=== PATIENT | female | born 1990 | race Caucasian/White ===

== ENCOUNTER 2020-09-05 10:18 | Outpatient (CLI) | payer OTHER, SELFPAY | END 2020-09-05 10:19 | disposition home or self-care (01) | PROVIDERS: PCP Family Medicine | DX: Z23 Encounter for immunization (principal) | CPT/HCPCS: 0001A; 91300 ==

== ENCOUNTER 2020-09-26 10:15 | Outpatient (CLI) | payer OTHER, SELFPAY | END 2020-09-26 10:16 | disposition home or self-care (01) | LOC: ANHCOVIDVC 10:15 | PROVIDERS: PCP Family Medicine | DX: Z23 Encounter for immunization (principal) | CPT/HCPCS: 0002A; 91300 ==

== ENCOUNTER 2022-10-03 23:45 | Observation (INO) | payer OTHER, BC, SELFPAY ==
[2022-10-04 00:16] VITALS: BP 123/71; PULSE 78
[2022-10-04 00:20] VITALS: BMI 38.1
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
== END 2022-10-04 01:40 | disposition home or self-care (01) ==
PROVIDERS: Admitting Provider Obstetrics & Gynecology; PCP Family Medicine; Visit Provider Obstetrics & Gynecology
DX: Z04.1 Encounter for examination and observation following transport accident (principal); V89.2XXA Person injured in unspecified motor-vehicle accident, traffic, initial encounter; Z3A.23 23 weeks gestation of pregnancy
CPT/HCPCS: 36415; 85460; 86850; 86900; 86901; G0378; G0379

== ENCOUNTER 2022-10-27 16:51 | Observation (INO) | payer BC, SELFPAY ==
[2022-10-27 17:12] VITALS: BP 126/76; PULSE 89
[2022-10-27 17:30] VITALS: BP 117/72; PULSE 96
[2022-10-27 17:46] LABS: Appearance Urine Cloudy (Clear); Bilirubin Urine 1+ (Negative); Blood Urine Negative (Negative); Color Urine Orange (Yellow); Glucose Urine UA Trace mg/dL (Negative); Ketones Urine 1+ mg/dL (Negative); Leukocyte Esterase Ur Negative LEU/UL (NEGATIVE); Nitrate Urine Positive (Negative); Protein Urine 2+ mg/dL (Negative); Specific Grav Ur >= 1.030 (1.001-1.035)
[2022-10-27 17:58] LABS: Bacteria Urine 2+ /hpf; Calcium Oxalate Crystals Urine Present /hpf; Non Pathogenic Casts 0-2; RBC Urine 0-2 /hpf (0-2); Squamous Epithelial Cell Urine Many /hpf (Few)
[2022-10-27 18:00] VITALS: BP 124/54; PULSE 98
[2022-10-27 18:00] LABS: Add Urine Microscopic? YES
[2022-10-27 18:09] VITALS: BMI 39.2
[2022-10-27] MEDS: ONDANSETRON INJ 4 MG/2 ML VIAL IV PUSH (18:10)
[2022-10-27] MEDS: FAMOTIDINE 20 MG/2 ML VIAL IV PUSH (18:11)
[2022-10-27 18:28] LABS: Basophils Percent Auto 0.3 % (0.2-1.2); Eosinophils Absolute Auto 0.1 K/mm3 (0-0.3); Eosinophils Percent Auto 0.9 % (0-4.4); Hematocrit 33.7 % (37.0-47.0); Hemoglobin 11.6 g/dL (12.0-15.0); Immature Granulocyte Absolute 0.05 K/mm3 (0.00-0.031); Immature Granulocyte Percent A 0.5 % (0-0.5); Lymphocytes Absolute Auto 2.27 K/mm3 (0.9-3.2); Lymphocytes Percent Auto 21.5 % (18.3-44.2); Mean Corpuscular HGB Conc 34.4 g/dl (32-36); Mean Corpuscular Hemoglobin 32.2 pg (26-34); Mean Corpuscular Volume 93.6 fl (80-100); Mean Platelet Volume 8.5 fl (7.4-10.4); Monocytes Absolute Auto 0.9 K/mm3 (0.1-0.6); Monocytes Percent Auto 8.8 % (2.6-8.5); Neutrophils Absolute Auto 7.2 K/mm3 (1.3-6.7); Platelet Count Result 264 k/mm3 (150-375); Red Cell Distribution Width 13.5 % (11.5-14.5); White Blood Count 10.5 K/mm3 (4.5-10.0)
[2022-10-27 18:31] VITALS: BP 117/60; PULSE 87
[2022-10-27 18:51] LABS: Alanine Aminotransferase 48 U/L (6-35); Albumin Level 3.4 g/dL (3.5-5.1); Alkaline Phosphatase 68 U/L (38-126); Anion Gap 9 mmol/L (8-16); Aspartate Amino Transferase 53 U/L (14-36); Bilirubin,Total 0.5 mg/dL (0.2-1.3); Blood Urea Nitrogen 6 mg/dL (7-17); Calcium 8.3 mg/dL (8.4-10.2); Carbon Dioxide 21 mmol/L (22-30); Chloride 105 mmol/L (98-107); Estimated CRCL calculation 138 ml/min; Estimated Glomerular Filt Rate > 60; Glucose 93 mg/dL (65-110); Potassium 3.5 mmol/L (3.4-5.0); Sodium 135 mmol/L (137-145)
[2022-10-27 19:00] VITALS: BP 132/82; PULSE 92
--- NOTE | 2022-10-27 19:00 | PC.NURSE ---
Murray Molina at nurses station. Orders received for macrobid 100 mg BID x 7 days, patient to have repeat CBC and CMP in office on Tuesday.
--- NOTE | 2022-10-27 19:00 | PC.NURSE ---
Murray Molina at nurses station. Lab results reviewed. Orders for LR 1 Liter bolus. CNM notified patient is requesting swabs for COVID, FLU, STREP, and a work note. CNM agrees.
[2022-10-27] MEDS: DEXTROSE 5%/LACTATED RINGERS 1,000 ML 999 ML IV CONT (19:09)
[2022-10-27 19:45] LABS: Influenza A QL RT-PCR Negative (Negative); Influenza B QL RT-PCR Negative (Negative); SARS-CoV-2 RNA PCR Negative (Negative)
--- NOTE | 2022-10-28 17:46 | P.PNOB_ITS ---
OB - Triage/Final Diagnosis Visit Information Date of evaluation: 10/27/22 Reason for evaluation: other (nausea) Comments/Additional reasons for admission: I have assessed the risk for this patient, Aaliyah Conrad, and determined that she would benefit from observation care. Evaluation Laboratory results: Laboratory Tests 10/27/22 10/27/22 10/27/22 17:30 18:21 18:59 WBC 10.5 H RBC 3.60 L Hgb 11.6 L Hct 33.7 L MCV 93.6 MCH 32.2 MCHC 34.4 RDW 13.5 Plt Count 264 MPV 8.5 Immature Gran % (Auto) 0.5 Neut % (Auto) 68.0 Lymph % (Auto) 21.5 [place] % (Auto) 8.8 H Eos % (Auto) 0.9 Baso % (Auto) 0.3 Lymph # (Auto) 2.27 [place] # (Auto) 0.9 H Eos # (Auto) 0.1 Baso # (Auto) 0.0 Abs Immat Gran (auto) 0.05 H Absolute Neuts (auto) 7.2 H Absolute Nucleated RBC 0.0 Nucleated RBC % 0.0 Sodium 135 L Potassium 3.5 Chloride 105 Carbon Dioxide 21 L Anion Gap 9 BUN 6 L Creatinine 0.50 L Estim Creat Clear Calc 138 Estimated GFR > 60 Glucose 93 Calcium 8.3 L Total Bilirubin 0.5 AST 53 H ALT 48 H Alkaline Phosphatase 68 Total Protein 6.0 L Albumin 3.4 L Urine Color [place] H Urine Appearance Cloudy H Urine pH 5.0 Ur Specific [place] >= 1.030 Urine Protein 2+ H Urine Glucose (UA) Trace H Urine Ketones 1+ H Ur Blood (Man) Negative Urine Nitrate Positive Urine Bilirubin 1+ H Urine Urobilinogen 2.0 H Ur Leukocyte Esterase Negative Urine RBC 0-2 Urine WBC 11-20 H Ur Squamous Epith Cells Many H Calcium Oxalate Crystal Present Urine Bacteria 2+ H Urine Casts 0-2 Influenza A (RT-PCR) Negative Influenza B (RT-PCR) Negative SARS-CoV-2 RNA (RT-PCR) Negative Vital signs: Vital Signs - 24 hr 10/27/22 18:00 10/27/22 18:31 10/27/22 19:00 Pulse Rate 98 87 92 Blood Pressure 124/54 L 117/60 132/82
== END 2022-10-27 20:37 | disposition home or self-care (01) ==
PROVIDERS: Advanced Practice Midwife; Admitting Provider Obstetrics & Gynecology; PCP Family Medicine; Visit Provider Obstetrics & Gynecology
DX: O21.9 Vomiting of pregnancy, unspecified (principal); Z3A.27 27 weeks gestation of pregnancy
CPT/HCPCS: 36415; 80053; 81001; 85025; 87086; 87636; 96374; 96375; G0378; G0379; J2405; J7121

== ENCOUNTER 2022-10-29 14:10 | Outpatient (CLI) | payer BC, SELFPAY ==
[2022-10-29 15:08] LABS: Hematocrit 34.8 % (37.0-47.0); Hemoglobin 11.9 g/dL (12.0-15.0); Mean Corpuscular HGB Conc 34.2 g/dl (32-36); Mean Corpuscular Hemoglobin 32.6 pg (26-34); Mean Corpuscular Volume 95.3 fl (80-100); Mean Platelet Volume 8.7 fl (7.4-10.4); Platelet Count Result 273 k/mm3 (150-375); Red Blood Count 3.65 M/mm3 (4.2-5.4); Red Cell Distribution Width 13.6 % (11.5-14.5); White Blood Count 11.2 K/mm3 (4.5-10.0)
[2022-10-29 15:21] LABS: Alanine Aminotransferase 56 U/L (6-35); Albumin Level 3.3 g/dL (3.5-5.1); Alkaline Phosphatase 61 U/L (38-126); Anion Gap 8 mmol/L (8-16); Aspartate Amino Transferase 52 U/L (14-36); Bilirubin,Total 0.3 mg/dL (0.2-1.3); Blood Urea Nitrogen 6 mg/dL (7-17); Calcium 8.1 mg/dL (8.4-10.2); Carbon Dioxide 23 mmol/L (22-30); Chloride 106 mmol/L (98-107); Estimated Glomerular Filt Rate > 60; Glucose 104 mg/dL (65-110); Potassium 3.6 mmol/L (3.4-5.0); Sodium 137 mmol/L (137-145)
== END 2022-10-29 14:11 | disposition home or self-care (01) ==
LOC: ANHOBOP 14:27
PROVIDERS: PCP Family Medicine; Visit Provider Advanced Practice Midwife
DX: O26.899 Other specified pregnancy related conditions, unspecified trimester (principal); E86.0 Dehydration; Z3A.00 Weeks of gestation of pregnancy not specified
CPT/HCPCS: 36415; 80053; 85027

== ENCOUNTER 2022-12-05 18:12 | Emergency (ER) | payer BC, SELFPAY ==
--- NOTE | ~2022-12-05 | XR_ITS ---
Portable chest x-ray Comparison: None Clinical History: Dyspnea Findings: Lungs are clear, without focal consolidation or pleural effusion. Cardiomediastinal silho uette is unremarkable. Bones and soft tissues are unremarkable. Impression: Normal chest. Reviewed, dictated and finalized at location M. Impression: Normal chest.
[2022-12-05 18:37] VITALS: BP 133/86; PULSE 79; RESP 20; TEMP 36.5; O2SAT 100
--- NOTE | 2022-12-05 18:46 | ECG_ITS ---
Measurements Intervals [place] Rate: 76 P: 54 CO: 130 QRS: 55 QRSD: 81 T: 35 QT: 373 QTc: 421 Interpretive Statements SINUS RHYTHM NORMAL ECG NO PREVIOUS ECG AVAILABLE FOR COMPARISON Electronically Signed On 12-06-2022 15:46:07 CDT by Alpesh Alfonso M.D.
--- NOTE | 2022-12-05 18:46 | PC.NURSE ---
ob charge contacted. states will come monitor pt when pt placed in room.
[2022-12-05 18:57] LABS: Basophils Percent Auto 0.3 % (0.2-1.2); Eosinophils Absolute Auto 0.1 K/mm3 (0-0.3); Eosinophils Percent Auto 0.8 % (0-4.4); Hematocrit 34.9 % (37.0-47.0); Immature Granulocyte Absolute 0.05 K/mm3 (0.00-0.031); Immature Granulocyte Percent A 0.4 % (0-0.5); Lymphocytes Absolute Auto 2.27 K/mm3 (0.9-3.2); Lymphocytes Percent Auto 19.6 % (18.3-44.2); Mean Corpuscular HGB Conc 34.4 g/dl (32-36); Mean Corpuscular Hemoglobin 32.1 pg (26-34); Mean Corpuscular Volume 93.3 fl (80-100); Mean Platelet Volume 8.8 fl (7.4-10.4); Monocytes Absolute Auto 0.9 K/mm3 (0.1-0.6); Monocytes Percent Auto 7.9 % (2.6-8.5); Neutrophils Absolute Auto 8.2 K/mm3 (1.3-6.7); Platelet Count Result 277 k/mm3 (150-375); Red Blood Count 3.74 M/mm3 (4.2-5.4); Red Cell Distribution Width 13.5 % (11.5-14.5); White Blood Count 11.6 K/mm3 (4.5-10.0)
[2022-12-05 19:07] LABS: Alanine Aminotransferase 19 U/L (6-35); Albumin Level 3.3 g/dL (3.5-5.1); Alkaline Phosphatase 78 U/L (38-126); Anion Gap 7 mmol/L (8-16); Aspartate Amino Transferase 19 U/L (14-36); Bilirubin,Total 0.2 mg/dL (0.2-1.3); Blood Urea Nitrogen 9 mg/dL (7-17); Calcium 8.9 mg/dL (8.4-10.2); Carbon Dioxide 20 mmol/L (22-30); Chloride 109 mmol/L (98-107); Estimated CRCL calculation 123 ml/min; Estimated Glomerular Filt Rate > 60; Glucose 97 mg/dL (65-110); Potassium 3.8 mmol/L (3.4-5.0); Sodium 136 mmol/L (137-145)
[2022-12-05 19:37] LABS: Appearance Urine Turbid (Clear); Bacteria Urine 4+ /hpf; Bilirubin Urine Negative (Negative); Blood Urine Negative (Negative); Color Urine Yellow (Yellow); Glucose Urine UA Negative (Negative); Ketones Urine Trace mg/dL (Negative); Leukocyte Esterase Ur Trace LEU/UL (Negative); Need Manual Microscopic Reviewed; Nitrate Urine Negative (Negative); Protein Urine 1+ mg/dL (Negative); Specific Grav Ur 1.025 (1.001-1.035); Squamous Epithelial Cell Urine Many /hpf (Few); Urobilinogen Urine 0.2 mg/dL (<2.0); WBC Urine 21-50 /hpf
[2022-12-05 19:38] LABS: Add Urine Microscopic? YES
--- NOTE | 2022-12-05 19:51 | ED.GENADULT ---
HPI - General Adult General Chief complaint: Shortness of Breath/Dyspnea Stated complaint: shortness of breath Time Seen by Provider: 12/05/22 19:36 Source: patient Mode of arrival: ambulatory Limitations: no limitations History of Present Illness HPI narrative: This is a 32-year-old female who is approximately 8 months with due date of January 25, 2023 who presents to the ED with chief complaint of shortness of breath and leg swelling over the past couple of days. Patient states that she has dyspnea on exertion. Additional complaints of left upper quadrant cramping. Denies any lower abdominal pain, bleeding or discharge. Denies vomiting, fevers, chills, nausea, chest pain Reports history of hypertension and she is on hypertensive medications. A0. States her PICK UP MAN is Dr. Kincaid. Related Data Home Medications Medication Instructions Recorded Confirmed levothyroxine 50 mcg tablet mcg 10/27/22 Allergies Allergy/AdvReac Type Severity Reaction Status Date / Time amoxicillin Allergy Unknown RASH Verified 10/04/22 00:46 Penicillins Allergy Unknown RASH Verified 10/04/22 00:46 Review of Systems Review of Systems: CONSTITUTIONAL: Denies fever, chills, or sweats. EYES: Denies visual changes, redness, or discharge. ENT: Denies rhinorrhea, congestion, sore throat, or otalgia. CARDIOVASCULAR: Denies chest pain, palpitations, or edema. RESPIRATORY: See HPI GASTROINTESTINAL: See HPI GENITOURINARY: Denies dysuria or hematuria. SKIN: Denies rash or itching. MUSCULOSKELETAL: Denies back pain, joint pain, or myalgia. NEUROLOGIC: Denies headache, numbness, dizziness, or weakness. PSYCHIATRIC: Denies anxiety or depression. [facility] Past Medical History Medical History BMI 33.0-33.9,adult BMI 34.0-34.9,adult BMI 35.0-35.9,adult BMI 37.0-37.9, adult BMI over 35 Tobacco abuse Family History Family History Grandparent Breast cancer Grandparent Diabetes mellitus Father No problems noted. Mother Hypertension Sibling No problems noted. 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 HEAD: Normocephalic, atraumatic. EYES: PERRLA and EOMI. ENT: Nares clear, no rhinorrhea or epistaxis. Mucous membranes moist. Oropharynx without tonsillar hypertrophy exudate or other lesions. NECK: Supple. No adenopathy or masses. CHEST: No respiratory distress. Clear to auscultation. No wheezes rales or rhonchi. Sats 100%. Speaking in full sentences HEART: Regular rate and rhythm. No murmur heard. Normal peripheral pulses. ABDOMEN: Gravid abdomen. Soft, nontender, nondistended, normal active bowel sounds. No guarding or MSK: Normal range of motion. No edema. SKIN: Warm, dry, no rash. NEURO: Alert and oriented x3. No focal deficits. PSYCH: Normal mood and affect. Course Course Emergency Course: I discussed the patient with Dr. Kincaid who is her PICK UP MAN. Explained that I have very low suspicion for any blood clot. Given her normal vitals and normal exam, feel that she would be stable for discharge and close follow-up with OB. Dr. Kincaid agrees with this plan. Vital Signs Vital signs: Vital Signs Temperature 97.7 F 12/05/22 18:37 Pulse Rate 79 12/05/22 18:37 Respiratory Rate 20 12/05/22 18:37 Blood Pressure 133/86 12/05/22 18:37 Pulse Oximetry 100 12/05/22 18:3
[2022-12-05 20:41] VITALS: BP 120/90; PULSE 104; RESP 19; O2SAT 99
--- NOTE | 2022-12-05 20:59 | PC.NURSE ---
Report given to ER nurse on reactive NST with uterine irritability.
[2022-12-05 21:01] VITALS: O2SAT 100
--- NOTE | 2022-12-05 22:46 | PC.NURSE ---
This Rn went to room, pt not in room, bathroom, or hallways. Pt was seen exiting the ED by intake nurse.
== END 2022-12-05 22:47 | disposition left against medical advice (07) ==
PROVIDERS: Emergency Medicine; Emergency Provider Physician Assistant; PCP Family Medicine
DX: R06.02 Shortness of breath (principal); O12.03 Gestational edema, third trimester; Z3A.00 Weeks of gestation of pregnancy not specified; O14.93 Unspecified pre-eclampsia, third trimester
CPT/HCPCS: 36415; 71045; 80053; 81001; 85025; 87086; 87088; 93005; 99284

== ENCOUNTER 2023-01-13 14:38 | Observation (INO) | payer BC, SELFPAY ==
--- NOTE | 2023-01-13 14:38 | OBADM ---
This patient, Aaliyah Conrad, admitted to the OB room Labor/Delivery/Recovery 103 for observation. Patient/family oriented to hospital policies and general routines including ID bracelet, bed and alarms, visiting hours, pain management, procedures, bathroom and other care routines, personal items, smoking policy, room service/diet, and visiting hours. Patient/Family are encouraged to report perceived risks to care and to ask questions if they do not understand what they are told or what they should do.
--- NOTE | 2023-02-06 18:39 | PM.OBTRLD ---
OB - Triage/Final Diagnosis Visit Information Comments/Additional reasons for admission: I have assessed the risk for this patient, Aaliyah Conrad, and determined that she would benefit from observation care. Final Diagnosis (1) False labor: Code(s): O47.9 - False labor, unspecified Status: Acute
== END 2023-01-13 17:00 | disposition home or self-care (01) ==
PROVIDERS: Admitting Provider Obstetrics & Gynecology; PCP Family Medicine; Visit Provider Obstetrics & Gynecology
DX: O47.1 False labor at or after 37 completed weeks of gestation (principal); Z3A.38 38 weeks gestation of pregnancy
CPT/HCPCS: G0378; G0379

== ENCOUNTER 2023-01-16 14:08 | Observation (INO) | payer BC, SELFPAY ==
[2023-01-16 14:36] VITALS: BP 136/83; PULSE 108
[2023-01-16 15:01] VITALS: BP 138/84; PULSE 110
[2023-01-16 15:31] VITALS: BP 139/80; PULSE 92
[2023-01-16 15:59] VITALS: BMI 42.6
--- NOTE | 2023-01-16 15:59 | OBADM ---
This patient, Aaliyah Conrad, admitted to the OB room OB Post 115 for observation. Patient/family oriented to hospital policies and general routines including ID bracelet, bed and alarms, visiting hours, pain management, procedures, bathroom and other care routines, personal items, smoking policy, room service/diet, and visiting hours. Patient/Family are encouraged to report perceived risks to care and to ask questions if they do not understand what they are told or what they should do.
[2023-01-16 16:01] VITALS: BP 126/64; PULSE 89
[2023-01-16 16:31] VITALS: BP 148/92; PULSE 96
--- NOTE | 2023-02-07 09:27 | PM.OBTRLD ---
OB - Triage/Final Diagnosis Visit Information Comments/Additional reasons for admission: I have assessed the risk for this patient, Aaliyah Conrad, and determined that she would benefit from observation care. Final Diagnosis (1) Fall: Code(s): W19.XXXA - Unspecified fall, initial encounter Status: Acute
== END 2023-01-16 17:40 | disposition home or self-care (01) ==
PROVIDERS: Admitting Provider Obstetrics & Gynecology; PCP Family Medicine; Visit Provider Obstetrics & Gynecology
DX: Z04.3 Encounter for examination and observation following other accident (principal)
CPT/HCPCS: G0378; G0379

== ENCOUNTER 2023-01-18 11:04 | Outpatient (CLI) | payer BC, SELFPAY ==
[2023-01-18 11:25] VITALS: BP 136/84; PULSE 100
[2023-01-18 11:31] VITALS: BP 111/98; PULSE 90
[2023-01-18 11:46] VITALS: BP 128/81; PULSE 85
[2023-01-18 11:54] LABS: Basophils Percent Auto 0.3 % (0.2-1.2); Eosinophils Percent Auto 0.3 % (0-4.4); Hematocrit 35.6 % (37.0-47.0); Immature Granulocyte Absolute 0.03 K/mm3 (0.00-0.031); Immature Granulocyte Percent A 0.3 % (0-0.5); Lymphocytes Absolute Auto 1.81 K/mm3 (0.9-3.2); Lymphocytes Percent Auto 20.5 % (18.3-44.2); Mean Corpuscular HGB Conc 33.7 g/dl (32-36); Mean Corpuscular Volume 94.9 fl (80-100); Mean Platelet Volume 9.4 fl (7.4-10.4); Monocytes Absolute Auto 0.6 K/mm3 (0.1-0.6); Monocytes Percent Auto 6.2 % (2.6-8.5); Neutrophils Absolute Auto 6.4 K/mm3 (1.3-6.7); Neutrophils Percent Auto 72.4 % (45.5-73.1); Platelet Count Result 216 k/mm3 (150-375); Red Blood Count 3.75 M/mm3 (4.2-5.4); Red Cell Distribution Width 13.7 % (11.5-14.5); White Blood Count 8.8 K/mm3 (4.5-10.0)
[2023-01-18 12:01] VITALS: BP 137/75; PULSE 95
[2023-01-18 12:01] LABS: Appearance Urine Cloudy (Clear); Bacteria Urine 1+ /hpf; Bilirubin Urine Negative (Negative); Blood Urine Negative (Negative); Color Urine Yellow (Yellow); Glucose Urine UA Negative (Negative); Ketones Urine Trace mg/dL (Negative); Leukocyte Esterase Ur Negative LEU/UL (NEGATIVE); Need Manual Microscopic Reviewed; Nitrate Urine Negative (Negative); Protein Urine 1+ mg/dL (Negative); Specific Grav Ur 1.028 (1.001-1.035); Squamous Epithelial Cell Urine Moderate /hpf (Few)
[2023-01-18 12:03] LABS: Add Urine Microscopic? YES
[2023-01-18 12:04] LABS: Alanine Aminotransferase 22 U/L (6-35); Albumin Level 3.3 g/dL (3.5-5.1); Alkaline Phosphatase 111 U/L (38-126); Anion Gap 11 mmol/L (8-16); Aspartate Amino Transferase 23 U/L (14-36); Bilirubin,Total 0.2 mg/dL (0.2-1.3); Blood Urea Nitrogen 10 mg/dL (7-17); Calcium 8.8 mg/dL (8.4-10.2); Carbon Dioxide 16 mmol/L (22-30); Chloride 108 mmol/L (98-107); Estimated Glomerular Filt Rate > 60; Glucose 147 mg/dL (65-110); Potassium 3.6 mmol/L (3.4-5.0); Sodium 135 mmol/L (137-145); Uric Acid 5.3 mg/dL (2.5-7.5)
[2023-01-18 12:05] LABS: Creatinine Urine 195.6 mg/dL; Total Protein Urine Random 19 mg/dL
[2023-01-18 12:21] VITALS: BP 128/81; PULSE 85
--- NOTE | 2023-01-18 12:23 | PC.NURSE ---
1213: RN called Dr. Raza to report maternal and status. RN reported all Blood pressures taken, lab results, urine results, and FHT. Orders to discharge patient home with instructions on when to return to the hospital.
== END 2023-01-18 11:20 | disposition home or self-care (01) ==
LOC: ANHOBOP 11:11 → ANHOBPP 11:13
PROVIDERS: PCP Family Medicine; Visit Provider Obstetrics & Gynecology
DX: O13.9 Gestational [pregnancy-induced] hypertension without significant proteinuria, unspecified trimester (principal); Z3A.00 Weeks of gestation of pregnancy not specified
CPT/HCPCS: 36415; 59025; 80053; 81001; 82570; 84156; 84550; 85025; 87086; 99199

== ENCOUNTER 2023-01-23 12:13 | Inpatient (IN) | payer BC, SELFPAY ==
[2023-01-23] VITALS (74 sets, daily range): BP systolic 97–158; BP diastolic 66–111; PULSE 74–118; RESP 16; TEMP 36.3–36.5; O2SAT 96–100; BMI 41.8
[2023-01-23] MEDS: LACTATED RINGERS 1,000 ML 125 ML IV CONT ×2 (12:44→13:46)
[2023-01-23 13:02] LABS: Basophils Percent Auto 0.3 % (0.2-1.2); Eosinophils Percent Auto 0.1 % (0-4.4); Hematocrit 38.7 % (37.0-47.0); Hemoglobin 13.4 g/dL (12.0-15.0); Immature Granulocyte Absolute 0.05 K/mm3 (0.00-0.031); Immature Granulocyte Percent A 0.4 % (0-0.5); Lymphocytes Absolute Auto 1.91 K/mm3 (0.9-3.2); Mean Corpuscular HGB Conc 34.6 g/dl (32-36); Mean Corpuscular Hemoglobin 31.8 pg (26-34); Mean Corpuscular Volume 91.9 fl (80-100); Mean Platelet Volume 9.7 fl (7.4-10.4); Monocytes Absolute Auto 0.7 K/mm3 (0.1-0.6); Monocytes Percent Auto 4.8 % (2.6-8.5); Neutrophils Percent Auto 80.4 % (45.5-73.1); Platelet Count Result 261 k/mm3 (150-375); Red Blood Count 4.21 M/mm3 (4.2-5.4); Red Cell Distribution Width 13.6 % (11.5-14.5); White Blood Count 13.7 K/mm3 (4.5-10.0)
[2023-01-23] MEDS: fentaNYL CITRATE INJ (*CRX) 100 MCG/2 ML VIAL IV PUSH (13:11)
--- NOTE | 2023-01-23 13:48 | WPDANESEPP ---
Anes - Eval Pre Procedure Procedure: Labor epidural Date/Time: 01/23/23 13:48 Surgeon: Sanjiv Preop Diagnosis: Pain during labor Pre Op Diagnosis: contractions Patient Data Age: 32 Gender: F Height: Weight: Last Vital Signs Pulse 118 H 01/23/23 13:45 BP 144/85 H 01/23/23 13:45 Pulse Ox 98 01/23/23 13:47 Allergies Allergy/AdvReac Type Severity Reaction Status Date / Time amoxicillin Allergy Unknown RASH Verified 12/29/22 13:29 Penicillins Allergy Unknown RASH Verified 12/29/22 13:29 Home Medications Medication Instructions Recorded Confirmed Type sertraline 100 mg tablet (Zoloft) 100 mg PO DAILY #90 tabs 09/11/22 Rx buspirone 7.5 mg tablet 7.5 mg PO DAILY 12/29/22 12/29/22 History levothyroxine 75 mcg tablet mcg 12/29/22 History prenat.vits,iraj,[id number] 1 tablet 12/29/22 History Laboratory Tests 01/23/23 12:54 WBC 13.7 H K/mm3 (4.5-10.0) RBC 4.21 M/mm3 (4.2-5.4) Hgb 13.4 g/dL (12.0-15.0) Hct 38.7 % (37.0-47.0) MCV 91.9 fl (80-100) MCH 31.8 pg (26-34) MCHC 34.6 g/dl (32-36) RDW 13.6 % (11.5-14.5) Plt Count 261 k/mm3 (150-375) MPV 9.7 fl (7.4-10.4) Immature Gran % (Auto) 0.4 % (0-0.5) Neut % (Auto) 80.4 H % (45.5-73.1) Lymph % (Auto) 14.0 L % (18.3-44.2) [place] % (Auto) 4.8 % (2.6-8.5) Eos % (Auto) 0.1 % (0-4.4) Baso % (Auto) 0.3 % (0.2-1.2) Lymph # (Auto) 1.91 K/mm3 (0.9-3.2) [place] # (Auto) 0.7 H K/mm3 (0.1-0.6) Eos # (Auto) 0.0 K/mm3 (0-0.3) Baso # (Auto) 0.0 K/mm3 (0.0-0.1) Abs Immat Gran (auto) 0.05 H K/mm3 (0.00-0.031) Absolute Neuts (auto) 11.0 H K/mm3 (1.3-6.7) Absolute Nucleated RBC 0.0 K/mm3 (0.0-0.012) Nucleated RBC % 0.0 % (0.0-0.2) RPR Pending Patient hx anesthesia problems: none Family hx anesthesia problems: none Results Review: All pre-operative results and documents have been reviewed as part of the pre-operative evaluation. [facility] Past Medical History Medical History BMI 33.0-33.9,adult BMI 34.0-34.9,adult BMI 35.0-35.9,adult BMI 37.0-37.9, adult BMI over 35 Tobacco abuse Family History Family History Grandparent Breast cancer Grandparent Diabetes mellitus Father No problems noted. Mother Hypertension Sibling No problems noted. 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
--- NOTE | 2023-01-23 14:44 | WPDOBADMIT ---
Obstetrics - Admit Note Admission Note: record reviewed. No pertinent additions to the history and/or any subsequent changes in the physical findings that are not consistent with the expected course of the were found.pt arrived in labor SVE 7/-2 AROM meconium fluid, anticipate vaginal delivery Additions to the history and/or subsequent changes in the physical findings follow. None.
--- NOTE | 2023-01-23 15:06 | LDADM ---
This patient, Aaliyah Conrad, was admitted to Labor/Delivery/Recovery 108 on 01/23/23 at 12:13. Plans for labor, pain management and were discussed with patient. Patient/family oriented to hospital policies and general routines including ID bracelet, bed and alarms, visiting hours, pain management, procedures, bathroom and other care routines, personal items, smoking policy, room service/diet and guest tray routines, security routines, and visiting hours. Patient/Family are encouraged to report perceived risks to care and to ask questions if they do not understand what they are told or what they should do. See OBIX for further documentation.
[2023-01-23] MEDS: OXYTOCIN 30 UNITS/NS 500 ML 30 UNITS/500 ML BAG 999 UNITS IV CONT (16:19)
--- NOTE | 2023-01-23 16:29 | PM.OBPRVD ---
OB - Delivery Note Procedure Delivery date: 01/23/23 Procedure: Intrapartal Events: Other (meconium) Delivery augmentation: Rupture of Membranes Delivery monitor: External FHT and External Uterine Route of delivery: Laceration Description: Periurethral and Vaginal Delivery repair: vicryl Specimen: Yes Quantitative Blood Loss (ml): 95 Anesthesia type: Epidural Disposition: Floor Baby Date of : 01/23/23 Time of : 16:17 Weeks of gestation at delivery: 39 Infant gender: Female Weight (pounds): 6 Weight (ounces): 6 presentation: vertex position: Left Occiput Anterior Placenta delivery description: Spontaneous Cord Vessel Description: 3 Vessels, Nuchal Cord (x1), Loose and Clamped/Cut score one minute: 7 score five minutes: 9 Narrative: baby to warmer, peds at delivery. mother and baby in stable condition
[2023-01-23] MEDS: OXYTOCIN 30 UNITS/NS 500 ML 30 UNITS/500 ML BAG 125 UNITS IV CONT (16:54)
[2023-01-23] MEDS: WITCH HAZEL 40 PADS 1 PAD TOPICAL (19:30)
[2023-01-23] MEDS: IBUPROFEN 600 MG TABLET PO (19:30)
[2023-01-23] MEDS: BENZOCAINE 20% AER SPR (*SP) 56 GM CAN 1 SPRAY (19:30)
[2023-01-23] MEDS: ACETAMINOPHEN 325 MG TABLET 650 MG PO (22:23)
[2023-01-23] MEDS: POLYSACCHARIDE IRON COMPLEX 150 MG CAPSULE PO (22:25)
--- NOTE | 2023-01-23 22:56 | OBPPTRN ---
01/23/2023 at 2117 Patient transferred to post room #291 via wheelchair. Support person present. Patient and her significant other oriented to unit, room, information board, rooming in, admission packet and security measures. Patient verbalizes understanding.
[2023-01-24 00:10] VITALS: BP 132/78; PULSE 89; RESP 16; TEMP 36; O2SAT 99
[2023-01-24] MEDS: IBUPROFEN 600 MG TABLET PO ×3 (01:17→23:47)
[2023-01-24] MEDS: ACETAMINOPHEN 325 MG TABLET 650 MG PO (04:00)
[2023-01-24 04:05] VITALS: BP 137/89; PULSE 83; RESP 16; TEMP 36; O2SAT 100
[2023-01-24 04:17] LABS: Hematocrit 32.4 % (37.0-47.0); Hemoglobin 10.6 g/dL (12.0-15.0)
--- NOTE | 2023-01-24 06:31 | PM.OBPNVD ---
OB - PN: Subj Subjective Date/time seen: 01/24/23 06:31 pp day 1 doing well pain managed bottle feeding OB - PN: Obj Data Labs 01/24/23 04:09 Labs: Laboratory Results - last 24 hr 01/23/23 01/24/23 12:54 04:09 WBC 13.7 H RBC 4.21 Hgb 13.4 10.6 L Hct 38.7 32.4 L MCV 91.9 MCH 31.8 MCHC 34.6 RDW 13.6 Plt Count 261 MPV 9.7 Immature Gran % (Auto) 0.4 Neut % (Auto) 80.4 H Lymph % (Auto) 14.0 L [place] % (Auto) 4.8 Eos % (Auto) 0.1 Baso % (Auto) 0.3 Lymph # (Auto) 1.91 [place] # (Auto) 0.7 H Eos # (Auto) 0.0 Baso # (Auto) 0.0 Abs Immat Gran (auto) 0.05 H Absolute Neuts (auto) 11.0 H Absolute Nucleated RBC 0.0 Nucleated RBC % 0.0 Blood Type A Positive Antibody Screen Negative OB - PN A/P Plan day: 1 Plan: routine care Time Spent With Patient Time: Total time spent is greater than 50% in coordination of care (as documented) at patient's floor/unit and/or counseling patient: Review of Systems Review of Systems: All systems reviewed & are unremarkable except as noted in HPI and below Exam Const: General: cooperative, healthy appearing and comfortable Chest: Chest palpation & inspection: normal inspection of the chest Resp: Effort & Inspection: normal respiratory effort Cardio: Rate: regular rate Rhythm: regular rhythm GI: Other: soft Back/Spine/Pelvis: Back: no CVA tenderness Skin: General skin exam: normal color Psych: Appearance: grossly normal
[2023-01-24 07:25] VITALS: BP 125/84; PULSE 83; RESP 16; TEMP 36.6; O2SAT 100
[2023-01-24] MEDS: MULTIVIT/MIN/PREN/FOL AC/IRON TABLET 1 TAB PO (08:13)
[2023-01-24] MEDS: busPIRone HCL 2.5 MG TABLET PO (08:14)
[2023-01-24] MEDS: busPIRone HCL 5 MG TABLET PO (08:14)
[2023-01-24 12:05] VITALS: BP 137/75; PULSE 88; RESP 16; TEMP 36.3; O2SAT 100
[2023-01-24] MEDS: LEVOTHYROXINE SODIUM 75 MCG TABLET PO (13:32)
[2023-01-24] MEDS: SERTRALINE HCL 50 MG TABLET 150 MG PO (13:32)
[2023-01-24] MEDS: DOCUSATE SODIUM 100 MG CAPSULE PO (13:34)
[2023-01-24 15:49] LABS: Rapid Plasma Reagin Non-Reactive (NonReactive)
[2023-01-24 21:25] VITALS: BP 145/89; PULSE 85; RESP 16; TEMP 36.5; O2SAT 99
[2023-01-25 07:55] VITALS: BP 130/84; PULSE 82; RESP 18; TEMP 36.8; O2SAT 100
--- NOTE | 2023-01-25 08:14 | PM.OBPNVD ---
OB - PN: Subj Subjective Date/time seen: 01/25/23 08:14 Patient comments: no complaints and pain well controlled baby status: doing well [place] feeding status: exclusively bottle feeding OB - PN: Obj Data Labs 01/24/23 04:09 Labs: Laboratory Results - last 24 hr 01/23/23 12:54 RPR Non-reactive OB - PN A/P Plan day: 2 Plan: routine care and discharge home Time Spent With Patient Time: Total time spent is greater than 50% in coordination of care (as documented) at patient's floor/unit and/or counseling patient: Time with patient: less than 15 minutes Exam Narrative: NAD abdomen soft, nontender, fundus firm below the umbilicus Extremities nontender, 1+ edema
--- NOTE | 2023-01-25 08:17 | PM.OBDSVD ---
DS: Admitting Diagnosis Discharge Date 01/25/23 Admitting Diagnosis term labor DS: Discharge Diagnosis Discharge Diagnosis (1) Vaginal delivery: Code(s): O80 - Encounter for full-term uncomplicated delivery Status: Acute OB - DS: Summary Hospital Course Hospital Course: Aaliyah was admitted for labor at term. She proceeded to have an uncomplicated vaginal delivery and course. She was discharged home in stable condition on PPD 2. OB Procedures : Ultrasound OB Procedures Intrapartum: Spontaneous Vag Delivery OB Procedures: : None Peripartum Data Infant Delivery Method: Natural Vaginal complications: none Status at Discharge Functional status at discharge: independent ambulation Time Spent with Patient Time attestation: Total time spent providing and/or coordinating discharge services: Exam Narrative: NAD abdomen soft, appropriately tender Ext non tender, 1+ edema DS: Data Data Completed and Pending Pending studies at discharge: Pending at discharge 01/23/23 16:20 Surgical [PTH] Routine Labs on day of discharge: Labs from last 24 hours 01/23/23 12:54 RPR Non-reactive Discharge Plan Discharge Attending physician on discharge: Rohini Raza Discharging Clinician: Rohini Raza Anticipated Discharge Date/Time: 01/25/23 08:15 Patient Disposition: Home, Self-Care Activity: pelvic rest Diet: regular Patient Instructions: Antibiotic Form Stand Alone Forms: General Discharge Information Follow-up/Referrals: Rohini Raza MD [Physician] - 4 Weeks Discharge Medications: Continued levothyroxine 75 mcg tablet prenat.vits,iraj,[id number] Tablet 1 tablet buspirone 7.5 mg Tablet 7.5 mg PO DAILY sertraline [Zoloft] 100 mg tablet 100 mg PO DAILY Qty: 90 0RF Date of admission: 01/23/23 12:13 Primary Care Provider: Myron Stearns Admitting Provider: Heydi Kincaid Attending physician on admission: Heydi Kincaid Condition: Stable
[2023-01-25] MEDS: SERTRALINE HCL 50 MG TABLET 150 MG PO (08:24)
[2023-01-25] MEDS: busPIRone HCL 5 MG TABLET PO (08:24)
[2023-01-25] MEDS: busPIRone HCL 2.5 MG TABLET PO (08:24)
[2023-01-25] MEDS: LEVOTHYROXINE SODIUM 75 MCG TABLET PO (08:24)
[2023-01-25] MEDS: MULTIVIT/MIN/PREN/FOL AC/IRON TABLET 1 TAB PO (08:24)
[2023-01-25] MEDS: DOCUSATE SODIUM 100 MG CAPSULE PO (08:25)
[2023-01-25] MEDS: IBUPROFEN 600 MG TABLET PO (08:25)
[2023-01-25] MEDS: DIBUCAINE 1% OINTMENT 30 GM TUBE 1 APPLIC TOPICAL (08:31)
--- NOTE | 2023-01-25 09:35 | PC.NURSE ---
Patient viewed the discharge video Mother & Baby Care, The First Two Weeks . Patient was given the opportunity and encouraged to ask questions. Patient verbalized understanding of information shared and has been given the mother/baby guide for home reference.
[2023-01-26 12:43] VITALS: BP 135/89; PULSE 89; RESP 18; TEMP 37.1; O2SAT 100
== END 2023-01-25 12:45 | disposition home or self-care (01) | DRG 768 ==
LOC: ANHOB2 01-25 10:11 → ANHLDR 01-26 09:41 → ANHOB2 01-26 09:41
PROVIDERS: Advanced Practice Midwife; Admitting Provider Obstetrics & Gynecology; PCP Family Medicine; Visit Provider Obstetrics & Gynecology
DX: O69.81X0 Labor and delivery complicated by cord around neck, without compression, not applicable or unspecified (principal); Z37.0 Single live birth; O71.4 Obstetric high vaginal laceration alone; Z3A.39 39 weeks gestation of pregnancy; O71.82 Other specified trauma to perineum and vulva; O77.0 Labor and delivery complicated by meconium in amniotic fluid
CPT/HCPCS: 36415; 85014; 85018; 85025; 86592; 86850; 86900; 86901; 88307; A9270; J2590; J2795; J3010; J7120

== ENCOUNTER 2023-06-27 17:19 | Outpatient (CLI) | payer BC, SELFPAY ==
[2023-06-27 18:45] LABS: Free T4 Free Thyroxine 1.47 ng/mL (0.78-2.19)
== END 2023-06-27 17:20 | disposition home or self-care (01) ==
LOC: ANHLAB 17:20
PROVIDERS: PCP Family Medicine; Visit Provider Physician Assistant Medical
DX: E03.9 Hypothyroidism, unspecified (principal)
CPT/HCPCS: 36415; 84439; 84443

== ENCOUNTER 2025-05-29 18:35 | Emergency (ER) | payer BC, SELFPAY ==
--- OUTSIDE RECORDS SUMMARY | 2025-05-28 10:15 | XMS_ITS | Encounter Summary ---
Author Organization [facility] Healthcare Address [address] [place] [id number] Care Team Providers Care Corporate Planner Name Role Phone Unknown, Notinfile Primary Care Provider Unavail able Reason for Visit * Reason Comments Fever Fever, body aches, l eft ear ache, headache, dehydration x 3 days Encounter Details Date Type Department Care Team (Late st Contact Info) Description 05/28/2025 10:15 AM PSYCHOLOGISTS Office Visit [facility] at [address] [id number] Althea Mclaughlin PA [address] [place] [address] [address] [place] [address] Fever and chills (Primary Dx) Social History Tobacco Use Types Packs/Day Years Used Date Smoking Tobacco: Never Assessed Comments No Sex and Gender Information Value Date Recorded Sex Assigned at Not on file Legal Sex Female 9:53 AM PSYCHOLOGISTS Gender Identity Not on file Sexual Orientation Not on file documented as of this encounter Last Filed Vital Signs Vital Sign Reading Time Taken Comments Blood Pressure 114/75 05/28/2025 10:05 AM PSYCHOLOGISTS Pulse 90 05/28/2025 10:05 AM PSYCHOLOGISTS Temperature 36.2 C (97.2 F) 05/28/2025 10:05 AM PSYCHOLOGISTS Respiratory Rate 16 05/28/2025 10:05 AM PSYCHOLOGISTS Oxygen Saturation 98% 05/28/2025 10:05 AM PSYCHOLOGISTS Inhaled Oxygen Concentration - - Weight 70 kg (154 lb 6.4 oz) 05/28/2025 10:05 AM PSYCHOLOGISTS Height 152.4 cm (5') 05/28/2025 10:05 AM PSYCHOLOGISTS Body Mass Index 30.15 05/28/2025 10:05 AM PSYCHOLOGISTS documented in this encounter Patient Instructions * Patient Instructions* Althea Mclaughlin PA - 05/28/2025 10:15 AM PSYCHOLOGISTS Plenty of rest and fluids. Tylenol and ibuprofen as needed for pain an fever. Sudafed (pseudoephedrine) as needed. Plenty of rest and fluids ER for new or worsening symptoms HOLOGISTS * Attachments The following attachments cannot be sent through Care Everywhere. * Viral Syndrome (AfterCare(R) Instructions(ER/ED)) (Hungarian) documented in this encounter Progress Notes * Althea Mclaughlin PA - 05/28/2025 10:15 AM CST Images from the original note were not included. Subjective/Objective Patient ID: Aaliyah Conrad is a 34 y.o. female. This patient has verbally consented to recording this visit in order to utilize AI technology in generating this note. Chief Complaint Fever (Fever, body aches, left ear ache, headache, dehydration x 3 days ) History of Present Illness Aaliyah Conrad is a 34 year old female who presents with fever, body aches, headache, and ear pain. Fever and constitutional symptoms - Fever for 3 days, maximum temperature 102??F - Current temperature 97??F after antipyretics - Body aches present - Chills and drenching night sweats - No known sick contacts - Headache present for 3 days - Left ear pain for 3 days - Runny nose for 3 days - No sore throat - Occasional cough Symptomatic treatment - Ibuprofen, NyQuil, and DayQuil used with partial relief Review of Systems All other systems reviewed and are negative. Physical Exam Physical Exam Constitutional: Appearance: Normal appearance. HENT: Head: Normocephalic and atraumatic. Right Ear: Ear canal and external ear normal. Left Ear: Ear canal and external ear normal. Ears: Comments: Serous fluid bilaterally, no erythema Nose: Congestion present. Mouth/Throat: Pharynx: Oropharynx is clear. Eyes: Pupils: Pupils are equal, round, and reactive to light. Cardiovascular: Rate and Rhythm: Normal rate and regular rhythm. Pulmonary: Effort: Pulmonary effort is normal. No respiratory distress. Breath sounds: Normal breath sounds. No wheezing or rhonchi. Musculoskeletal: General: Normal range of motion. Cervical back: Normal range of motion. Skin: General: Skin is warm and dry. Neurological: General: No focal deficit present. Mental Status: She is alert and oriented to person, place, and time. Psychiatric: Mood and Affect: Mood normal. Behavior: Behavior normal. Vitals: 05/28/25 1005 BP: 114/75 Pulse: 90 Resp: 16 Temp: 36.2 ??C (97.2 ??F) SpO2: 98% Weight: 70 kg (154 lb 6.4 oz) Height: 152.4 cm (5') No results found. No past medical history on file. Current Outpatient Medications: busPIRone (BUSPAR) 10 mg tablet, Take 1 tablet (10 mg total) by mouth 2 (two) times a day, Disp: , Rfl: sertraline (ZOLOFT) 100 mg tablet, Take 2 tablets (200 mg total) by mouth daily, Disp: , Rfl: Allergies Allergen Reactions Penicillins Rash Social History Tobacco Use Smoking status: None Smokeless tobacco: None Substance and Sexual Activity Drug use: None Sexual activity: None Alcohol Use: Not on file History reviewed. No pertinent surgical history. Procedures Assessment/Plan Results Recent Results (from the past 4 hours) POC Influenza A/B, COVID-19 antigen Collection Time: 05/28/25 10:28 AM Result Value Ref Range Influenza A Ag, POC Negative Negative Influenza B Ag, POC Negative Negative COVID-19 Ag POC Presumptive Negative Presumptive Negative, Invalid Assessment & Plan -Likely viral URI, will treat supportively and with OTC meds (Flonase, Antihistamine, Sudafed,Tylenol, Motrin) -covid/flu negative -Return precautions discussed Diagnoses and all orders for this visit: Fever and chills (Primary) - POC Influenza A/B, COVID-19 antigen Disposition Treatment plan including expectations, follow up, and return precautions discussed with patient/parent, verbalizes understanding. Medication dosage, use, and potential adverse reactions discussed with patient/parent. Advised to follow up with PCP if symptoms do not resolve as expected or sooner if condition worsens. Signs/symptoms warranting ER evaluation reviewed. Patient and/or guardian was given an opportunity to ask questions, questions answered. ADRIAN Bob HOLOGISTS documented in this encounter Plan of Treatment Not on file documented as of this encounter Procedures Procedure Name Priority Date/Time Associated Diagnosis Comments POC INFLUENZA A/B, COVID-19 ANTIGEN Routine 05/28/2025 10:28 AM PSYCHOLOGISTS Fever and chills documented in this encounter Results * POC Influenza A/B, COVID-19 antigen (05/28/2025 10:28 AM PSYCHOLOGISTS) Influenza A Ag, POC Negative Negative [facility] Influenza B Ag, POC Negative Negative [facility] COVID-19 Ag POC Presumptive Negative Presumptive Negative, Invalid [facility] Nasal 05/28/2025 10:2 8 AM PSYCHOLOGISTS Althea CAMPBELL POINT OF CARE TEST ORDER CATA Final Result [facility] [address] [place] [address] documented in this encounter Visit Diagnoses Diagnosis Fever and chills- Primary Fever, unspecified documented in this encounter Historical Medications * This list may reflect changes made after this encounter. busPIRone (BUSPAR) 10 mg tablet Take 1 tablet (10 mg total) by mouth 2 (two) times a day 04/07/2025 sertraline (ZOLOFT) 100 mg tablet Take 2 tablets (200 mg total) by mouth daily 04/08/2025 added in this encounter Additional Health Concerns Infection Onset Date Last Indicated Resolved Time COVID: Suspected 05/28/2025 05/28/2025 05/28/2025 10:29 AM PSYCHOLOGISTS documented as of this encounter Care Teams Corporate Planner Relationship Specialty Start Date End Date Unknown, Notinfile PCP - General 05/28/25 documented as of this encounter
[2025-05-29 18:48] VITALS: BP 123/88; PULSE 83; RESP 16; TEMP 36.4; O2SAT 100
[2025-05-29] MEDS: SODIUM CHLORIDE 0.9% IV 1,000 ML 999 ML IV CONT (19:08)
[2025-05-29] MEDS: ONDANSETRON INJ 4 MG/2 ML VIAL IV PUSH (19:09)
[2025-05-29] MEDS: cefTRIAXone 1 GM in SODIUM CHLORIDE 0.9% IV 50 ML 100 ML IVPB (19:11)
[2025-05-29 19:13] LABS: BEDSIDEPREGUCG Negative (Negative)
[2025-05-29 19:39] LABS: Add Urine Microscopic? YES; Appearance Urine Clear (Clear); Budding Yeast Urine Present /hpf; Glucose Urine UA Negative (Negative); Leukocyte Esterase Ur 1+ LEU/UL (Negative); Need Manual Microscopic Reviewed; Nitrate Urine Negative (Negative); Non Pathogenic Casts 0-2; Specific Grav Ur > 1.045 (1.001-1.035)
[2025-05-29 20:31] VITALS: BP 134/89; PULSE 81; RESP 14; TEMP 36.6; O2SAT 100
--- NOTE | 2025-05-29 20:50 | ED.FEMALEGU ---
HPI - Female Genitourinary General Chief complaint: Urogenital-Female Stated complaint: flank pain, fever Time Seen by Provider: 05/29/25 18:45 History of Present Illness HPI Narrative: Patient presents here with left flank pain for last few days, and some nausea and dysuria. Labs and CT showing pyelonephritis. Related Data Allergies Allergy/AdvReac Type Severity Reaction Status Date / Time amoxicillin Allergy Unknown RASH Verified 05/29/25 19:08 Penicillins Allergy Unknown RASH Verified 05/29/25 19:08 Review of Systems Review of Systems: All systems reviewed & are unremarkable except as noted in HPI and below PMFSH Past Medical History Medical History Vaginal delivery False labor BMI over 35 Tobacco abuse BMI 37.0-37.9, adult Family History Family History Grandparent Breast cancer Grandparent Diabetes mellitus Father No problems noted. Mother Hypertension Sibling No problems noted. 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 HEAD: Normal with no signs of head trauma. EYES: EOMI, conjunctiva normal ENT: Hearing grossly intact LUNGS: Nonlabored breathing. HEART: Regular rate and rhythm ABD: Soft, minimal left CVA tenderness EXT: Normal range of motion SKIN: No rashes or lesions. NEURO: Alert. No gross focal sensory or strength deficits. PSYCH: Normal affect Course Vital Signs Vital signs: Vital Signs Temperature 97.6 F 05/29/25 18:48 Pulse Rate 83 05/29/25 18:48 Respiratory Rate 16 05/29/25 18:48 Blood Pressure 123/88 05/29/25 18:48 Pulse Oximetry 100 05/29/25 18:48 Oxygen Delivery Room Air 05/29/25 18:48 Temperature 98 F 05/29/25 20:31 Pulse Rate 81 05/29/25 20:31 Respiratory Rate 14 05/29/25 20:31 Blood Pressure 134/89 05/29/25 20:31 Pulse Oximetry 100 05/29/25 20:31 Oxygen Delivery Room Air 05/29/25 18:48 MDM MDM Narrative Medical decision making narrative: [age] year-old patient presenting from urgent care after being found to have pyelonephritis on based on CT and labs, I did also review the labs which included normal creatinine. I will send a urine culture from here, give her a dose of IV ceftriaxone, fluids, nausea medicine, reassess. On re-evaluation patient doing very well with no complaints. Patient prescribed Bactrim and strongly advised to return for any increasing or worsening pain, fevers or vomiting. They expressed understanding of instructions and is discharged in stable condition. Differential Diagnosis Differential Diagnosis: Pyelonephritis diagnosis from urgent care based on labs and CT Lab Data Labs: Lab Results 05/29/25 05/29/25 Range/Units 19:11 19:12 Urine Color Yellow (Yellow) Urine Appearance Clear (Clear) Urine pH 6.0 (5.0-9.0) Ur Specific [place] > 1.045 H (1.001-1.035) Urine Protein 1+ H (Negative) mg/dL Urine Glucose (UA) Negative (Negative) mg/dL Urine Ketones 1+ H (Negative) mg/dL Ur Blood (Man) Trace (Negative) Urine Nitrate Negative (Negative) Urine Bilirubin Negative (Negative) Urine Urobilinogen 1.0 (<2.0) mg/dL Add Ur Microanalysis Reviewed Leukocyte Esterase Rfl 1+ H (Negative) OANH/UL Urine RBC 3-5 H (0-2) /hpf Urine WBC 21-50 H (0-3) /hpf Ur Squamous Epith Cells Few (Few) /hpf Urine Bacteria 4+ H /hpf Urine Casts 0-2 Urine Yeast (Budding) Present H (None) /hpf POC Urine HCG, Qual Negative (Negative) Discharge Plan Discharge Clinical Impression: Pyelonephritis Patient Disposition: Home Condition: Stable Instructions: Antibiotic Form, Kidney Infection (ED) Additional Instructions: Please follow up with your doctor; take the antibiotics as prescribed. If you start developing worsening pain, fevers or chills, nausea vomiting, come back to the ER. Patient Language: Estonian Prescriptions: New sulfamethoxazole-trimethoprim [Bactrim DS] 800-160 mg tablet 1 tablet PO Q12H Qty: 14 0RF ondansetron 4 mg tablet,disintegrating 4 mg PO Q8H PRN (Reason: nausea and vomiting) Qty: 14 0RF fluconazole 150 mg tablet 150 mg PO ONCE Qty: 1 0RF Rx Instructions: as a single dose No Action sertraline [Zoloft] 100 mg tablet 200 mg PO DAILY Qty: 180 3RF semaglutide (weight loss) 2.4 mg/0.75 mL pen injector 2.4 mg subcut WEEKLY Qty: 3 3RF buspirone 10 mg tablet 10 mg PO BID Qty: 60 3RF Follow-up/Referrals: Myron Stearns MD [Primary Care Provider, Family Practice]
--- OUTSIDE RECORDS SUMMARY | 2025-05-29 21:16 | XMS_ITS | Clinical Summary ---
Author Organization [facility] Address [address] [place] [address] Care Team Providers Care Twisting Frame Fixer Name Role Phone Unavailable Primary Care Provider Unavailabl e Source Comments [facility],non-owned Affiliates and Associated Physician Practices is amultiple site organization consisting of ambulatory clinics and hospital sitesin [place], [place] and [place]. This disclosure is being madepursuant to the Care Everywhere program and may not contain all information available regarding this patient. Last updated 18.[facility] [email or web address] Allergies Active Allergy Reactions Criticality Noted Date Comments Penicillins Rash Medium 09/01/2017 Medications * Be aware that medications may not be up to date on this document. Alwaysverify current medications with the patient. PARAGARD INTRAUTERINE COPPER IU ParaGard T 380A Active azithromycin (ZITHROMAX) 250 MG tabletIndications :Acute otitis media, unspecified otitis media type Take 2 tabs today, then 1 tab daily for next 4 days 6 tablet 1 Active Active Problems Problem Noted Date Diagnosed Date Seasonal allergies 04/19/2021 Assessment & Plan (04/19/2021 12:53 PM CDT): Sudafed 4 hour as needed Ibuprofen as needed. Zyrtec daily Flonase nasal spray daily Dysfunction of both eustachian tubes 04/19/2021 Assessment & Plan (04/19/2021 12:53 PM CDT): Sudafed 4 hour as needed Ibuprofen as needed. Zyrtec daily Flonase nasal spray daily Social History Tobacco Use Types Packs/Day Years Used Date Smoking Tobacco: Never Smokeless Tobacco: Never Comments No Sex and Gender Information Value Date Recorded Sex Assigned at Not on file Legal Sex Female 9:09 AM CDT Gender Identity Not on file Sexual Orientation Not on file Last Filed Vital Signs Vital Sign Reading Time Taken Comments Blood Pressure 114/62 12/23/2020 2:23 PM CDT Pulse 86 04/19/2021 12:46 PM CDT Temperature 36.8 C (98.3 F) 12/23/2020 2:23 PM CDT Respiratory Rate 16 04/19/2021 12:46 PM CDT Oxygen Saturation 97% 04/19/2021 12:46 PM CDT Inhaled Oxygen Concentration - - Weight 83.9 kg (185 lb) 04/19/2021 12:46 PM CDT Height 152.4 cm (5') 04/19/2021 12:46 PM CDT Body Mass Index 36.13 04/19/2021 12:46 PM CDT Plan of Treatment Health Maintenance Due Date Last Done Comments HIV SCREENING 2007 HEPATITIS C SCREENING 07/15/2010 DTAP/TDAP/TD VACCINES (1 - Tdap) 2011 HEPATITIS B VACCINE (1 of 3 - 19+ 3-dose series) 2011 PAP SMEAR 2013 HPV VACCINE (1 - 3-dose SCDM series) 2019 DEPRESSION SCREENING 06/20/2024 COVID-19 VACCINE (3 - 2024-2 6 season) 2025 09/26/2020, 09/05/2020 INFLUENZA VACCINE (#1) 2025 ZOSTER VACCINE (1 of 2) 2042 HIB VACCINE Aged Out No longer eligi ble based on patient's age to complete this topic MENINGOCOCCAL (Group B) VACCINE SHARED DECISION-MAKING Aged Out No longer eligible based on patient's age to complete this topic MENINGOCOCCAL GROUPS A/C/Y/W VACCINE Aged Out No longer eligible b ased on patient's age to complete this topic PNEUMOCOCCAL VACCINE Aged Out No long er eligible based on patient's age to complete this topic Insurance [employer] [facility]
--- OUTSIDE RECORDS SUMMARY | 2025-05-29 21:16 | XMS_ITS | Data Portability ---
Author Organization [facility] [place] Address [address] [place] [address] Assessment Encounter Date Assessment Date Assessment LastModified by Organization Details LastModified Time 09/24/2024 09/24/2024 Annual gynecological exam performed. Patient will come back in a year unless there are new symptoms. [email or web address] Not available 09/24/2024 15:59:19 Plan of Treatment Reminders Order Date Submit Date Provider Last Modified By Organization Details Last Modified Time Details Appointments None recorded. Lab HBsAg (hepatitis B surface Ag), serum 2024 025 [facility] (Lab), [address], [place], [address], 5 20:24:34 test, urine 2022 023 [facility], [address], [place], [address], 3 10:45:28 Referral None recorded. Procedures None recorded. Surgeries None recorded. Imaging non-stress test 2022 023 [facility] [address], [place], [address], 3 12:13:03 Medication Orders ParaGard T 380A 380 square mm intrauterin e device 2022 023 [email or web address] [id number] [facility] #[id number], [address], [place], [place], [id number], 10:18:15 Patient TargetsNo targets recorded. Patient InstructionsNo instructions recorded. Reason for Referral None Reported. Results Created Date Observation Date Name Description Value Unit Range Abnormal Flag Note LastModifiedBy Organization Detail LastModifiedTime 03/04/20 23 03/04/2023 pregn sugey test, urine HCG negati ve Not Available [facility] [address], [place], [address], 03/04/2023 10:45:08 09/25/19 25 09/24/2024 HBSAG /HCV/ HIV/R TN HIV antigen/anti body Nonrea ctive nonrea ctive HIV-1 antig en and HIV-1 /HIV- 2 antib odies were not detec javier. No labor atory evide nce of HIV infec tion. Not Available [facility] (Lab) [address], [place], [address], 09/25/2024 20:24:34 09/25/19 25 09/24/2024 HBSAG /HCV/ HIV/R TN hepatitis B surface antigen Non-re active non-re active This assay was perfo rmed using [employer] ratio n reage nts and test kits. Value s obtai alia with other assay metho ds or kits canno t be used inter enriquez eably . Not Available [facility] (Lab) [address], [place], [address], 09/25/2024 20:24:34 09/25/19 25 09/24/2024 HBSAG /HCV/ HIV/R TN hepatitis C antibody Non-re active non-re active Antib odies to HCV Not Detec javier, does not exclu de the possi bilit y of expos ure to HCV. Not Available [facility] (Lab) [address], [place], [address], 09/25/2024 20:24:34 09/25/19 25 09/24/2024 HBSAG /HCV/ HIV/R TN RPR qualitative Nonrea ctive nonrea ctive Not Available [facility] (Lab) [address] [facility] [facility], [place], [address], 09/25/2024 20:24:34 09/25/19 25 09/24/2024 IMAGE GUIDE D PAP AND HPV REGAR DLESS image guided Pap, HPV regardless of Pap result SEE RESULT S BELOW abnormal CASE REPOR T: Cytol ogy Gynec ologi iraj Repor t Case: [id number] Autho michaela luis Provi kyara: Dermo dy, Janelle , ANP, DELI/BAKERY ASSOCIATE Colle cted: 09/24 1606 Order ing Locat ion: [place] Patho logy Recei praneeth: 09/25 0959 First Scree n: Kelly Merchant, CT Patho logis t: Kb Salinas MD Speci men: Shreyas mackey Pap - Image d, Cervi x STATE MENT OF ADEQU ACY: Satis facto ry for evalu ation Trans forma tion zone compo nent prese nt ----- ----- ----- ----- ----- ----- ----- ----- ----- ----- ----- ----- ----- ----- ----- ----- ----- ---- FINAL DIAGN OSIS: Epith elial Cell Abnor malit y, Squam ous Cell: Low Grade Squam ous Intra epith elial Lesio n (LSIL ). Elect pasha baird by Kb Salinas MD on 2024 at 1409 CDT ----- ----- ----- ----- ----- ----- ----- ----- ----- ----- ----- ----- ----- ----- ----- ----- ----- ---- HPV RESUL TS: HPV mRNA E6/E7 : Posit chidi - HPV mRNA Detec javier HPV GENOT YPE 16 (STEFFANIE) : Not Detec javier HPV GENOT YPE 18/45 (STEFFANIE) : Not Detec javier NOTE: This high risk HPV mRNA assay detec ts fourt een high- risk HPV types (16, 18, 31, 33, 35, 39, 45, 51, 52, 56, 58, 59, 66, 68) witho ut diffe renti ation . This assay can diffe renti ate HPV 16 from HPV 18/45 , but does not diffe renti ate betwe en HPV 18 and HPV 45. A negat chidi HPV 16, 18/45 genot ype assay resul t does not exclu de the possi bilit y of cytol ogic abnor malit ies or of futur e or under lying RENAE 1, RENAE 3 or cance r. COMME NT: This speci men was revie wed by a Cytot echno logis t and/o r Patho logis t (as indic ated in this repor t) after evalu ation using the Thinp rep Imagi ng Syste m. CLINI IRAJ INFOR MATIO N: Menst rual Statu s: LMP (if appli cable ): Clini iraj Histo ry/Pr eviou s Pap: Type of Neopl ira (if appli cable ): Signi fican t Clini iraj Findi ngs: Other Histo ry: Hormo anastacia (if appli cable ): SUGGE STED FOLLO W-UP: Follo w up as warra nted, based on curre nt guide lines and indiv idual patie nt consi derat ions. Not Available [facility] (Lab) [address] [facility], [place], [address], 09/27/2024 15:13:17 09/25/19 25 09/24/2024 TRICH OMONA S VAGIN HELLEN (RRNA ) trichomonas vaginalis ribosomal RNA (rrna) Negati ve negati ve Not Available [facility] (Lab) [address], [place], [address], 09/27/2024 15:13:17 09/25/19 25 09/24/2024 CT/GC (STEFFANIE) , THINP REP VIAL chlamydia trachomatis, PCR Negati ve negati ve Not Available [facility] (Lab) [address], [place], [address], 09/27/2024 15:13:17 09/25/19 25 09/24/2024 CT/GC (STEFFANIE) , THINP REP VIAL neisseria gonorrhoeae, PCR Negati ve negati ve Not Available [facility] (Lab) [address], [place], [address], 09/27/2024 15:13:17 11/09/19 25 11/08/2024 SURGI IRAJ PATHO LOGY surgical pathology SEE RESULT S BELOW CASE REPOR T: Surgi iraj Patho logy Repor t Case: [id number] Autho michaela smith Provi kyara: Gertrudis Kincaid MD Colle cted: 11/08 1654 Order ing Locat ion: [place] Patho logy Recei praneeth: 11/09 0201 Patho logis t: Ambrosio Squires MD Speci men: Cervi x, CXBX ----- ----- ----- ----- ----- ----- ----- ----- ----- ----- ----- ----- ----- ----- ----- ----- ----- ---- FINAL DIAGN OSIS: Cervi x, biops y: -Low- grade squam ous intra epith elial lesio n (RENAE- 1). Liliam baird by Ambrosio Squires MD on 2024 at 1332 CDT ----- ----- ----- ----- ----- ----- ----- ----- ----- ----- ----- ----- ----- ----- ----- ----- ----- ---- CLINI IRAJ INFOR MATIO N: High Risk human papil lomav irus detec javier MICRO SCOPI C DESCR IPTIO N: A micro scopi c exami natio n was perfo rmed. A porti on of the testi ng proce ss was perfo rmed at [facility] rn Medic ine Labor atori es site NMDP1 12. Digit al imagi ng was used in the diagn ostic asses sment of this case. GROSS DESCR IPTIO N: A. Cervi x. The speci men is label ed with the patie nt's name, demog raphi cs and Cx Bx. Recei praneeth in forma kandace are two fragm ents of white -alford tissu e measu ring 0.3 cm each. The entir e speci men is submi tted in one casse tte. Gross ed by Denisa Richey on Not Available [facility] (Lab) [address] [facility], [place], [address], 11/09/2024 14:37:05 12/24/19 23 12/23/2022 US, obste tric, follo w-up No observ ation record ed. [email or web address] [facility] [address], [place], [address], 12/23/2022 12:41:04 12/24/19 23 12/23/2022 US, obste tric, follo w-up No observ ation record ed. BRANDY Strickland [address], [place], [address], 09/13/2024 09:08:43 01/05/20 23 01/04/2023 non-s tress test No observ ation record ed. [email or web address] [facility] [address], [place], [address], 01/04/2023 11:32:27 01/05/20 23 01/04/2023 US, obste tric, 2nd or 3rd trime ster No observ ation record ed. BRANDY Strickland [address], [place], [address], 09/13/2024 09:08:42 01/05/20 23 01/04/2023 US, obste tric, follo w-up No observ ation record ed. [email or web address] [facility] [address], [place], [address], 01/04/2023 13:29:14 01/12/20 23 01/11/2023 US, obste tric, bioph ysica l profi le + non-s tress test No observ ation record ed. [email or web address] [facility] [address], [place], [address], 01/11/2023 12:59:00 01/12/20 23 01/11/2023 US, obste tric, bioph ysica l profi le + non-s tress test No observ ation record ed. BRANDY Em [address], [place], [address], 09/13/2024 09:08:42 01/12/20 23 01/11/2023 non-s tress test No observ ation record ed. [email or web address] [facility] [address], [place], [address], 01/11/2023 12:35:16 01/19/20 23 01/24/2023 non-s tress test No observ ation record ed. [email or web address] [facility] [address], [place], [address], 01/24/2023 12:13:03 01/19/20 23 01/18/2023 US, obste tric, bioph ysica l profi le + non-s tress test No observ ation record ed. [email or web address] [facility] [address], [place], [address], 01/18/2023 11:07:51 01/19/2001/18/2023 US, obste tric, bioph ysica l profi le + non-s tress test No observ ation record ed. BRANDY Strickland [address], [place], [address], 09/13/2024 09:08:41 01/19/2001/18/2023 non-s tress test No observ ation record ed. [address], [place], [address], 01/19/2023 09:33:25 Result Notes None recorded. Problems Name Problem SNOMED Code Status Onset Date Resolution Date Notes Provider Name and Address Organization Details Recorded Time Liver function tests outside referenc e range 422103995 Completed slightly elevated 10/29/22- repeat 11/09/22 -resolve d Zofia Winnle null, [facility] 3 14:21:14 Anxiety 15321187 Active zoloft, buspar Britaney Hussain null, [facility] 3 14:21:14 Anxiety 28745658 Completed zoloft, buspar Britaney Hussain null, [facility] 3 14:21:14 Uterine size for dates discrepa ncy 830546611 Completed growth US 36w Zofia Winnle null, [facility] 3 14:21:14 Maternal obesity complica ting pregnanc y, childbir th and the puerperi um, antepart um [id number] 7 Completed ante testing 37w Zofia Nixon null, [facility] 3 14:21:14 Pregnanc y 85445691 Completed 202201/28/2023 Zofia Winnle null, [facility] 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 ! Zofia chavez, [facility] 3 14:21:14 Hypothyr oidism 70120759 Active 2022 3.67 - 50 mcg synthroi d - rpt TSH around 08/17/22! ! Zofia chavez, [facility] 3 14:21:14 Problem Notes None recorded. Procedures Surgical History Date Name Laterality Status Provider Name and Address Organization Details Recorded Time 11/09/19 25 Colposcopy completed Quang Kincaid MD [address], [place], [address], [facility] 11/08/2024 18:23:00 11/09/19 25 Colposcopy completed Waleska Ibarra [facility] 11/08/2024 17:18:07 09/25/19 25 Date of Last Pap Smear completed Waleska Ibarra [facility] 11/08/2024 17:10:51 03/04/20 23 IUD Insertion completed KAMLA BECKWITH MD [address], [place], [address], [facility] 03/04/2023 10:09:56 Imaging Results None recorded. Procedure Notes None recorded. Medical Equipment None Reported. Allergies Allergen ID Allergen Name Allergen Category Reaction Reaction Severity Criticality Documentation Date Start Date Code Code System Note Provider Name and Address Organization Details Recorded Time 82805 amoxicill in medicatio n Not available Not available Not available 08/06/2020 723 RxNorm [facility] 12:21:36 89655 Product containin g penicilli n (product) medicatio n Not available Not available Not available 08/06/2020 36425 8001 SNOMED Chani Wilhelm scott, [facility] 12:21:46 Medications Name Sig Start Date Stop Date Status Note LastModified by Organization Details LastModified Time buspirone 5 mg tablet TAKE 1 TABLET BY MOUTH TWICE DAILY 10/18 completed Not Available Not Available Not Available clindamycin HCl 300 mg capsule TAKE ONE CAPSULE BY MOUTH THREE TIMES DAILY FOR 7 DAYS 09/24 completed Not Available Not Available Not Available ibuprofen 800 mg tablet TAKE 1 TABLET BY MOUTH EVERY 8 HOURS NEEDED FOR PAIN 09/24 completed Not Available Not Available Not Available prochlorper azine maleate 5 mg tablet TAKE 1 TO 2 TABLETS BY MOUTH EVERY 6 HOURS NEEDED FOR HEADACHE 09/24 completed Not Available Not Available Not Available sertraline 100 mg tablet TAKE 2 TABLETS BY MOUTH DAILY active Not Available Not Available No t Available clindamycin HCl 150 mg capsule TAKE 1 CAPSULE BY MOUTH EVERY 6 HOURS FOR 5 DAYS 09/24 completed Not Available Not Available Not Available phentermine 37.5 mg tablet TAKE 1 TABLET BY MOUTH DAILY 09/24 completed Not Available Not Available Not Available levothyroxi ne 75 mcg tablet TAKE 1 TABLET BY MOUTH EVERY DAY 09/24 completed Not Available Not Available Not Available oxycodone-a cetaminophe n 5 mg-325 mg tablet TAKE 1 TABLET BY MOUTH EVERY 8 HOURS NEEDED FOR PAIN 09/24 completed Not Available Not Available Not Available levothyroxi ne 50 mcg tablet TAKE 1 TABLET BY MOUTH EVERY DAY 11/09 completed Not Available Not Available Not Available buspirone 10 mg tablet TAKE 1 TABLET BY MOUTH TWICE DAILY active Not Available Not Available No t Available betamethaso ne, augmented 0.05 % topical ointment APPLY TOPICALLY TO THE AFFECTED AREA DAILY NEEDED FOR RASH 06/16 completed Not Available Not Available Not Available sertraline 25 mg tablet TAKE 1 TABLET BY MOUTH DAILY 06/16 completed Not Available Not Available Not Available buspirone 7.5 mg tablet TAKE 1 TABLET BY MOUTH TWICE DAILY 10/18 completed Not Available Not Available Not Available norethindro ne acetate 5 mg tablet Take 1 tablet every 8 hours by oral route. 09/24 completed Not Available Not Available Not Available methylpredn isolone 4 mg tablets in a dose pack FOLLOW PACKAGE DIRECTION S 09/24 completed Not Available Not Available Not Available hydroxyzine HCl 10 mg tablet TAKE 1 TABLET BY MOUTH THREE TIMES DAILY NEEDED FOR NAUSEA OR VOMITING 06/16 completed Not Available Not Available Not Available ondansetron 4 mg disintegrat ing tablet DISSOLVE 1 TABLET BY MOUTH EVERY 6 HOURS NEEDED FOR NAUSEA 09/24 completed Not Available Not Available Not Available sertraline 50 mg tablet TAKE 1 TABLET BY MOUTH THREE TIMES DAILY 09/24 completed Not Available Not Available Not Available ParaGard T 380A 380 square mm intrauterin e device Take 1 device by intrauter ine route. 2022 active Not Available Not Available Not Avai lable phentermine 37.5 mg capsule TAKE 1 CAPSULE BY MOUTH DAILY 06/16 completed Not Available Not Available Not Available metoclopram graeme 10 mg tablet TAKE 1 TABLET BY MOUTH FOUR TIMES DAILY 10/05 completed Not Available Not Available Not Available buspirone 15 mg tablet Take 5mg twice daily for 3-4 days, if no improveme nt increase to 7.5 mg twice daily for 3-4 days, if no improveme nt increase to 10 mg twice daily. Not to exceed 10 mg twice a day. 10/18 completed Not Available Not Available Not Available nitrofurant oin monohydrate /macrocryst als 100 mg capsule TAKE 1 CAPSULE BY MOUTH EVERY 12 HOURS 02/23 completed Not Available Not Available Not Available phentermine 06/16 completed Not Available Not Available Not Available ParaGard T 380A 06/16 completed Not Available Not Available Not Available Vitamin 09/24 completed Not Available Not Available Not Available Wegovy 1.7 mg/0.75 mL subcutaneou s pen injector ADMINISTE R 1.7 MG UNDER THE SKIN WEEKLY active Not Available Not Available No t Available Wegovy 1 mg/0.5 mL subcutaneou s pen injector ADMINISTE R 1 MG UNDER THE SKIN WEEKLY 09/24 completed Not Available Not Available Not Available Wegovy 0.25 mg/0.5 mL subcutaneou s pen injector 09/24 completed Not Available Not Available Not Available Wegovy 0.5 mg/0.5 mL subcutaneou s pen injector ADMINISTE R 0.5 MG UNDER THE SKIN WEEKLY 09/24 completed Not Available Not Available Not Available sertraline 150 mg capsule TAKE 1 CAPSULE BY MOUTH EVERY DAY 11/09 completed Not Available Not Available Not Available Vitals Date Recorded Body height Body mass index (BMI) Body weight Systolic And Diastolic Provider Name and Address Organization Details Last Updated DateTime 09/24/2024 152.4 cm 34 kg/m2 58811.07 g 126/83 mm[Hg] SINAN Carl [facility] 09/24/2024 15:59:50 Date Recorded Body height Body mass index (BMI) Body weight Systolic And Diastolic Provider Name and Address Organization Details Last Updated DateTime 11/08/2024 152.4 cm 32.8 kg/m2 14099.52 g 119/80 mm[Hg] Waleska Fred [facility] 11/08/2024 17:10:38 Date Recorded Body weight Systolic And Diastolic Provider Name and Address Organization Details Last Updated DateTime 01/18/2023 14260.51560 g 135/99 mm[Hg] Mitzy Abel [facility] 01/18/2023 10:28:16 Date Recorded Body mass index (BMI) Body height Systolic And Diastolic Provider Name and Address Organization Details Last Updated DateTime 01/18/2023 42 kg/m2 152.4 cm 150/100 mm[Hg] Dana Meehan [facility] 01/18/2023 11:12:04 Date Recorded Body height Body mass index (BMI) Body weight Systolic And Diastolic Provider Name and Address Organization Details Last Updated DateTime 02/23/2023 152.4 cm 39.1 kg/m2 96691.47 g 128/91 mm[Hg] Marychuy Dejesus [facility] 02/23/2023 12:18:18 Date Recorded Body height Body mass index (BMI) Body weight Systolic And Diastolic Provider Name and Address Organization Details Last Updated DateTime 03/04/2023 152.4 cm 39.1 kg/m2 14903.47 g 110/77 mm[Hg] Vannesa Pearson [facility] 03/04/2023 09:44:20 Social History Question Answer Notes LastModified by Organizat ion Details LastModified Time Tobacco Smoking Status Former Smoker Haydee Sims scott [facility] 12/23/2022 11:13:51 If You Are , What Was Your Level Of Alcohol Consumption Prior To ? Occasional Information not available 12/23/2022 How Many Years Have You Consumed Alcohol? 8 [email or web address] Information not available 06/16/2022 Are You Blind Or Do You Have Difficulty Seeing? No [email or web address] Information not available 06/16/2022 What Is Your Level Of Caffeine Consumption? Moderate Information not available 08/09/2022 How Much Tobacco Do You Chew? None [email or web address] Information not available 06/16/2022 In The 14 Days Before Symptom Onset, Have You Had Close Contact With A Laboratory-confir med COVID-19 While That Case Was Ill? No [email or web address] Information not available 06/16/2022 In The 14 Days Before Symptom Onset, Have You Had Close Contact With A Person Who Is Under Investigation For COVID-19 While That Person Was Ill? No [email or web address] Information not available 06/16/2022 Have You Been To An Area Known To Be High Risk For COVID-19? No [email or web address] Information not available 06/16/2022 Are You Deaf Or Do You Have Serious Difficulty Hearing? No [email or web address] Information not available 06/16/2022 What Type Of Diet Are You Following? REGULAR [email or web address] Information not available 06/16/2022 What Is The Highest Grade Or Level Of School You Have Completed Or The Highest Degree You Have Received? [id number] [email or web address] Information not available 06/16/2022 Are There Any Guns Present In Your Home? No [email or web address] Information not available 06/16/2022 Have You Ever Been Counseled For Unhealthy Alcohol Use? No [email or web address] Information not available 12/23/2022 Do You Use Protection During Sex? No [email or web address] Information not available 06/16/2022 Do You Use Your Seat Belt Or Car Seat Routinely? Yes [email or web address] Information not available 06/16/2022 Do You Have Smoke And Carbon Monoxide Detectors In Your Home? Yes [email or web address] Information not available 06/16/2022 How Much Tobacco Do You Smoke? No Information not available 06/16/2022 Do You Use Sunscreen Routinely? Yes [email or web address] Information not available 06/16/2022 Has Tobacco Cessation Counseling Been Provided? No [email or web address] Information not available 12/23/2022 Have You Used IV Drugs? No [email or web address] Information not available 06/16/2022 Do You Have Difficulty Walking Or Climbing Stairs? No [email or web address] Information not available 12/23/2022 Sex: Unknown Functional Status Question Answer Note LastModified by Organizat ion Details LastModified Time Do you use any illicit or recreational drugs? No Information not available 08/06/2020 Do you or have you ever used any other forms of tobacco or nicotine? No [email or web address] Information not available 12/23/2022 What is your level of alcohol consumption? None [email or web address] Information not available 06/16/2022 Are you able to walk independently without assistance or assistive devices? [email or web address] Information not available 06/16/2022 Are you able to care for yourself independently? Yes [email or web address] Information not available 12/23/2022 What is your occupation? Teacher [email or web address] Information not available 06/16/2022 Do you have difficulty dressing, bathing, grooming, or toileting? No Information not available 12/23/2022 What is your exercise level? Occasional Information not available 08/06/2020 Mental Status Question Answer Note LastModified by Organization D etails LastModified Time Do you feel stressed (tense, restless, nervous, or anxious, or unable to sleep at night)? [id number] Information not available 08/09/2022 Family History Relationship Description Onset Age of this Age Resolved Age Notes LastModified by Organization Details LastModified Time Maternal Grandfather Diabetes mellitus [email or web address] Not available 2020 12:22:39 Medical History Condition Response Other N Blood Transfusion N Dermatologic Disorders N Gestational Diabetes N Anxiety Disorder Y Autoimmune disease N Arthritis N Polyps N Infertility N Acid Reflux (GERD) N Cancer N Varicosities N Stroke N Neurologic/Epilepsy N Fibromyalgia N Headaches N Kidney Disease N Heart Problems N Kidney or Bladder Problems N Eating Disorder N Art (IVF or FET) N Hepatitis/Liver Disease N Urinary Tract Infection N Asthma N Trauma/Violence N Thrombophilias N Allergies (Food, seasonal, environmental ) N Breast Cancer N Drug/Latex Allergies/Reactions N Lung Disease N Defects or Inherited Disease N Breast Problem N Hematologic disorders N Anesthesia Complications N History of STI Y Deep Vein Thrombosis N Polycystic ovary syndrome N History of abnormal pap Y Endometriosis N High Cholesterol N Thyroid Problems N GI Problems N Anemia N Psychiatric Illness N Ovarian Cancer N Diabetes N Pulmonary (TB, Asthma) N Eczema N Abuse/Domestic Violence N Depression/ depression Y Heart Disease N Pre-Eclampsia N Hypertension N Osteoporosis N Gynecological History Statement/Question Response Abnormal Pap Y Flow Moderate Date of LMP 10/25/2024 N Was last menstrual period normal Y STIs/STDs Y HPV Vaccine Y Duration of Flow (days) 7 Current Control Method IUD Are cycles usually normal Y Frequency of Cycle (Q days) 30 Sexually Active? Y Menses Monthly Y Age of first menstrual cycle 13 Date of Last Pap Smear 09/24/2024 Sexual Problems? N Desired Control Method IUD LMP Definite N Obstetrics History GPAL:G 1 P 1 0 0 1 Type Value Full Term 1 Living 1 Total 1 Past Encounters Encounter ID Performer Location Encounter Start Date Encounter Closed Date Diagnosis/Indication Diagnosis SNOMED-CT Code Diagnosis ICD10 Code Diagnosis IMO Codes Diagnosis Note [id number] Kamille Vasquez [facility] [address] [address] 08/06/2020 12:15:04 08/06/2020 12:50:31 Gynecologic examination [id number] Z01.419 Take Calcium with Vitamin D 1200mg daily if not receiving in daily diet. It is strongly advised to have an annual flu shot and up can obtain at most pharmacies . If you have not had a TDap shot in the last 10 years you should obtain one as well. Discussed with patient & provided with informatio n regarding Gardisil vaccine to prevent the 4 strains for HPV that cause cervical cancer if under age 26. Encourage safe sexual practices, to use condoms and limit partners if not already in a monogamous relationsh ip. Do monthly self breast exams. Have mammogram yearly or every other year depending on family history. BRCA testing is now available for patients with strong genetic history of female cancer. If interested contact the office. Engage in daily exercise of low impact aerobic exercise 45-60 minutes 4-5 times weekly. Avoid tobacco and illicit drugs as well as using moderation with alcohol intake less than 1-2 8 oz beverages daily. This lifestyle behavior pattern will lead to less health conditions and longer life span. If BMI greater than 25 weight watchers or dietary consult advised. Patient received above instructio ns, and questions have been answered. If you have any questions please call or respond to this email. Patient was made aware of the patient portal and may obtain a paper copy of today's plan if desired. Pap sent STD sent No issues or questions Getting in [facility] 08/2020 [facility] [id number] Quang Kincaid MD [facility] [address],[place] [address] 06/16/2022 13:53:32 06/16/2022 14:22:00 [id number] Brittney Molina [facility] [address],[place] [address] 06/16/2022 13:53:59 06/16/2022 15:11:49 Amenorrhea 07598444 N91.2 Nausea 362656415 R11.0 [id number] Quang Kincaid MD [facility]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
--- OUTSIDE RECORDS SUMMARY | 2025-05-29 21:16 | XMS_ITS | Clinical Summary ---
Author Organization [address] [address] Care Team Providers Care Medical Office Secretary Name Role Phone Unknown, Notinfile Primary Care Provider Unavail able Allergies Active Allergy Reactions Criticality Noted Date Comments Penicillins Rash Medium 09/01/2017 Medications sertraline (ZOLOFT) 100 mg tablet Take 2 tablets (200 mg total) by mouth daily 04/08/2025 Active busPIRone (BUSPAR) 10 mg tablet Take 1 tablet (10 mg total) by mouth 2 (two) times a day 04/07/2025 Active Active Problems No known active problems Encounters Date Type Department Care Team Description 05/28/2025 10:15 AM RESIDENT SERVICES SUPERVISOR Office Visit [facility] at [address] [address] Althea Mclaughlin PA Fever and chills (Primary Dx) from Last 3 Months Social History Tobacco Use Types Packs/Day Years Used Date Smoking Tobacco: Never Assessed Comments No Sex and Gender Information Value Date Recorded Sex Assigned at Not on file Legal Sex Female 9:53 AM RESIDENT SERVICES SUPERVISOR Gender Identity Not on file Sexual Orientation Not on file Last Filed Vital Signs Vital Sign Reading Time Taken Comments Blood Pressure 114/75 05/28/2025 10:05 AM RESIDENT SERVICES SUPERVISOR Pulse 90 05/28/2025 10:05 AM RESIDENT SERVICES SUPERVISOR Temperature 36.2 C (97.2 F) 05/28/2025 10:05 AM RESIDENT SERVICES SUPERVISOR Respiratory Rate 16 05/28/2025 10:05 AM RESIDENT SERVICES SUPERVISOR Oxygen Saturation 98% 05/28/2025 10:05 AM RESIDENT SERVICES SUPERVISOR Inhaled Oxygen Concentration - - Weight 70 kg (154 lb 6.4 oz) 05/28/2025 10:05 AM RESIDENT SERVICES SUPERVISOR Height 152.4 cm (5') 05/28/2025 10:05 AM RESIDENT SERVICES SUPERVISOR Body Mass Index 30.15 05/28/2025 10:05 AM RESIDENT SERVICES SUPERVISOR Plan of Treatment Health Maintenance Due Date Last Done Comments Cervical Cancer Screening 1992 Depression Screening 1992 Hepatitis C Screening 1992 Varicella Vaccines (1 of 2 - 13+ 2-dose series) 2005 Regular Well Visit/Exam 18-64 2010 HPV Vaccines (1 - 3-dose SCDM series) 2019 Covid-19 Vaccine (3 - season) 2025 09/26/2020, 09/05/2020 Influenza Vaccine (#1) 2025 DTaP/Tdap/Td Vaccine (6 - Td or Tdap) 12/08/2032 12/08/2022, 03/07/1997, 11/16/1995, Additional history exists Hepatitis B Screening Completed 03/07/1997 , 03/22/1996, 11/16/1995 Pneumococcal vaccine <65 Aged Out No longer eligible based on patient's age to complete this topic Procedures Procedure Name Priority Date/Time Associated Diagnosis Comments POC INFLUENZA A/B, COVID-19 ANTIGEN Routine 05/28/2025 10:28 AM RESIDENT SERVICES SUPERVISOR Fever and chills from Last 3 Months Results * POC Influenza A/B, COVID-19 antigen (05/28/2025 10:28 AM RESIDENT SERVICES SUPERVISOR) Influenza A Ag, POC Negative Negative [facility] Influenza B Ag, POC Negative Negative [facility] COVID-19 Ag POC Presumptive Negative Presumptive Negative, Invalid [facility] Nasal 05/28/2025 10:2 8 AM RESIDENT SERVICES SUPERVISOR us Althea CAMPBELL POINT OF CARE TEST ORDER CATA Final Result [facility] [address] [place] [address], [facility] from Last [address] [place], [place] [id number] [place] [address] Care Teams Medical Office Secretary Relationship Specialty Start Date End Date Unknown, Notinfile PCP - General 05/28/25
== END 2025-05-29 20:33 | disposition home or self-care (01) ==
PROVIDERS: Emergency Provider Emergency Medicine; PCP Family Medicine
DX: N12 Tubulo-interstitial nephritis, not specified as acute or chronic (principal); Z87.891 Personal history of nicotine dependence
CPT/HCPCS: 81001; 81025; 87086; 87186; 96365; 96375; 99284; J0696; J2405; J7030